=== PATIENT | male | born 1970 | race Caucasian/White ===

== ENCOUNTER 2018-03-08 15:32 | Emergency (ER) | payer OTHER ==
[~2018-03-08] VITALS: Ht 182.9 cm; Wt 114.3 kg
[2018-03-08 15:49] VITALS: BP 131/94
[2018-03-08 16:55] VITALS: BP 139/79
== END 2018-03-08 16:55 | disposition home or self-care (01) ==
LOC: MED 15:32
DX: K11.5 Sialolithiasis (principal); E11.9 Type 2 diabetes mellitus without complications; I10 Essential (primary) hypertension; E78.5 Hyperlipidemia, unspecified; Z90.49 Acquired absence of other specified parts of digestive tract
CPT/HCPCS: 82948; 99281

== ENCOUNTER 2020-02-18 18:21 | Emergency (ER) | payer OTHER ==
[~2020-02-18] VITALS: Ht 175.3 cm; Wt 99.8 kg
--- NOTE | 2020-02-18 18:25 | NUR ---
PT AMBULATED TO BED 7.
[2020-02-18 18:31] VITALS: BP 154/97
--- NOTE | 2020-02-18 18:35 | NUR ---
49 Y/O M C/C DYSURIA DUE TO GENITAL HERPES FOR PAST OF 30 DAYS. PER PT CHRONIC CONDITION FOR PAST 15 YEARS WITH RELAPSED EPISODES. PER PT ON ANTIVIRAL MEDICATION FOR A 30 DAY COURSE AND HAS NOT HAD IMPROVEMENT, FIRST OCURRENCE. PT TAKEN LAST ANTIVIRAL TABLET TODAY OF A 30 DAY COURSE TREATMENT. PER PT GENITAL HERPES WITH FLUID FILLED VESICLES CURRENTLY. PT NKA. HX HTN,DM,GENITAL HERPES. SX GALLBLADDER. RX LISINOPRIL,METFORMIN. DENIES NVD. SIDE RAIL X1.
--- NOTE | 2020-02-18 18:38 | NUR ---
ERMD AT BEDSIDE
[2020-02-18 19:01] VITALS: BP 145/88
--- NOTE | 2020-02-18 19:01 | NUR ---
Patient discharged with v/s stable. Written and verbal after care instructions given and explained. Patient alert, oriented and verbalized understanding of instructions. Ambulatory with steady gait. All questions addressed prior to discharge. ID band removed. Patient advised to follow up with PMD. Rx of VEREGEN given. Patient educated on indication of medication including possible reaction and side effects. Opportunity to ask questions provided and answered.
== END 2020-02-18 19:01 | disposition home or self-care (01) ==
LOC: MED 18:21
DX: B07.9 Viral wart, unspecified (principal); E11.9 Type 2 diabetes mellitus without complications; I10 Essential (primary) hypertension
CPT/HCPCS: 99283

== ENCOUNTER 2023-03-02 18:03 | Emergency (ER) | payer OTHER ==
[~2023-03-02] VITALS: Ht 182.9 cm; Wt 93.6 kg
[2023-03-02 18:38] VITALS: BP 157/106; PULSE 117; RESP 20; TEMP 98.4; O2SAT 98
[2023-03-02] MEDS ORDERED: IBUP-2213 PO (22:33)
[2023-03-02] MEDS ORDERED: ACET-8905 PO (22:33)
[2023-03-02] MEDS ORDERED: LISI40TA12 PO (22:33)
[2023-03-02] MEDS ORDERED: KETOROLAC 60 MG/2 ML VIAL IM ONE (22:35)
[2023-03-02] MEDS ORDERED: KETOROLAC 30 MG/ML VIAL IVP ONE (22:40)
[2023-03-02] MEDS ORDERED: [UNRECOGNIZED DRUG - CODE] PO (22:58)
[2023-03-02 23:03] VITALS: BP 169/108; PULSE 88; RESP 18; O2SAT 100
== END 2023-03-02 23:00 | disposition home or self-care (01) ==
LOC: MED 18:03
DX: M54.50 Low back pain, unspecified (principal); E11.9 Type 2 diabetes mellitus without complications; I10 Essential (primary) hypertension; Z79.899 Other long term (current) drug therapy; Z90.49 Acquired absence of other specified parts of digestive tract
CPT/HCPCS: 81002; 82948; 96374; 99283; J1885